=== PATIENT | female | born 1950 | race Caucasian/White ===

== ENCOUNTER 2019-11-29 20:57 | Emergency (ER) | payer OTHER ==
[~2019-11-29] VITALS: Ht 162.6 cm; Wt 76.9 kg
[2019-11-29] MEDS ORDERED: AMPICILLIN/SULBACTAM 3 GM in SODIUM CHLORIDE 0.9% 100 ML IV ONE (21:52)
--- NOTE | 2019-11-29 22:30 | NUR ---
pt resting in bed with friend at pt side, pt a/o x4 and speaking full sentences. pt denied any wants or needs at this time.
[2019-11-29 22:42] LABS: BASOPHILS # (AUTO) 0.02 x10^3/uL (0-0.1); BASOPHILS % (AUTO) 0 % (0-1); EOSINOPHILS # (AUTO) 0.24 x10^3/uL (0-0.4); EOSINOPHILS % (AUTO) 2 % (1-7); LYMPHOCYTES # (AUTO) 2.43 x10^3/uL (1-3.4); LYMPHOCYTES % (AUTO) 16 % (22-44); MD NO; MEAN CORPUSCULAR HEMOGLOBIN 29.4 pg (27.0-34.8); MEAN CORPUSCULAR HGB CONC 33.2 g/dL (32.4-35.8); MEAN CORPUSCULAR VOLUME 88.8 fL (80-100); MEAN PLATELET VOLUME 9.4 fL (7.4-10.4); MONOCYTES # (AUTO) 0.78 x10^3/uL (0.2-0.8); MONOCYTES % (AUTO) 5 % (2-9); NEUTROPHILS # (AUTO) 11.58 x10^3/uL (1.8-6.8); NEUTROPHILS % (AUTO) 77 % (42-75); PLATELET COUNT 279 x10^3/uL (130-400); RED CELL DISTRIBUTION WIDTH 12.4 % (9.6-15.2)
[2019-11-29 22:52] LABS: ALBUMIN 3.4 g/dL (3.4-5.0); ANION GAP 10 mmol/L (5-15); CALCIUM 8.8 mg/dL (8.5-10.1); CHLORIDE 103 mmol/L (98-107); CREATININE 1.22 mg/dL (0.55-1.02)
[2019-11-29] MEDS ORDERED: NEOSPORIN OINT. PKT 1 PACKET ONE ×2 (22:54→23:13)
[2019-11-29 23:45] VITALS: BP 136/74
[2019-12-01] MEDS ORDERED: LISI-170 PO (16:55)
[2019-12-01] MEDS ORDERED: AMLO-150 PO (17:34)
== END 2019-11-29 23:47 | disposition home or self-care (01) ==
LOC: ED 22:31
DX: L03.031 Cellulitis of right toe (principal); I10 Essential (primary) hypertension
CPT/HCPCS: 36415; 73660; 80048; 82040; 83605; 85025; 87040; 93005; 96365; 99285; J0295

== ENCOUNTER 2019-11-30 07:59 | Emergency (ER) | payer OTHER ==
[~2019-11-30] VITALS: Ht 162.6 cm; Wt 76.4 kg
[2019-11-30 08:19] VITALS: BP 133/97
--- NOTE | 2019-11-30 09:12 | NUR ---
PT BROUGHT BACK FOR RECHECK OF RIGHT TOE INJURY/INFECTION AND ABX. SEEN HERE LAST NIGHT.
[2019-11-30] MEDS ORDERED: CEFTRIAXONE PMX 1GM/50ML 50 ML ONE (09:28)
[2019-11-30] MEDS ORDERED: CEFAZOLIN PMX 1GM/50ML 50 ML IVPB ONE (09:30)
[2019-11-30] MEDS ORDERED: SODIUM CHLORIDE FLUSH 10ML SYR IVF ONE (09:30)
[2019-11-30] MEDS ORDERED: CEFAZOLIN PMX 1GM/50ML 50 ML ONE (09:32)
--- NOTE | 2019-11-30 10:00 | NUR ---
DISCHARGE INSTRUCTIONS REVIEWED
[2019-11-30 10:03] LABS: BASOPHILS # (AUTO) 0.04 x10^3/uL (0-0.1); BASOPHILS % (AUTO) 0 % (0-1); EOSINOPHILS # (AUTO) 0.35 x10^3/uL (0-0.4); EOSINOPHILS % (AUTO) 3 % (1-7); LYMPHOCYTES # (AUTO) 2.15 x10^3/uL (1-3.4); LYMPHOCYTES % (AUTO) 19 % (22-44); MD NO; MEAN CORPUSCULAR HEMOGLOBIN 29.9 pg (27.0-34.8); MEAN CORPUSCULAR HGB CONC 33.7 g/dL (32.4-35.8); MEAN CORPUSCULAR VOLUME 88.8 fL (80-100); MEAN PLATELET VOLUME 9.3 fL (7.4-10.4); MONOCYTES # (AUTO) 0.77 x10^3/uL (0.2-0.8); MONOCYTES % (AUTO) 7 % (2-9); NEUTROPHILS # (AUTO) 8.01 x10^3/uL (1.8-6.8); NEUTROPHILS % (AUTO) 71 % (42-75); PLATELET COUNT 270 x10^3/uL (130-400); RED BLOOD COUNT 4.24 x10^6/uL (3.82-5.3); RED CELL DISTRIBUTION WIDTH 12.6 % (9.6-15.2)
[2019-12-01] MEDS ORDERED: LISI-170 PO (16:55)
[2019-12-01] MEDS ORDERED: AMLO-150 PO (17:34)
== END 2019-11-30 10:24 | disposition home or self-care (01) ==
LOC: ED 09:26
DX: L03.115 Cellulitis of right lower limb (principal)
CPT/HCPCS: 36415; 85025; 96365; 99284; J0690